=== PATIENT | male | born 1940 | race Caucasian/White ===

== ENCOUNTER 2025-02-10 03:20 | Emergency (ER) | payer MEDICARE, BC ==
[2025-02-10 03:43] LABS: BASOPHILS ABSOLUTE AUTO 0.04 K/uL (0.00-0.20); BASOPHILS PERCENT AUTO 0.6 % (0.0-2.0); EOSINOPHILS ABSOLUTE AUTO 0.33 K/uL (0.00-0.50); EOSINOPHILS PERCENT AUTO 5.1 % (0.0-5.0); IMMATURE GRAN ABSOLUTE AUTO 0.01 10^3/uL (0.00-0.04); IMMATURE GRAN PERCENT AUTO 0.2 % (0.0-0.4); LYMPHOCYTES ABSOLUTE AUTO 1.15 K/uL (0.50-3.50); LYMPHOCYTES PERCENT AUTO 17.7 % (10.0-50.0); MONOCYTES ABSOLUTE AUTO 1.10 K/uL (0.00-1.00); MONOCYTES PERCENT AUTO 16.9 % (2.0-14.0); NEUTROPHILS ABSOLUTE AUTO 3.87 K/uL (1.40-7.00); NEUTROPHILS PERCENT AUTO 59.5 % (45.0-80.0); PLATELET COUNT,PLT 215 K/uL (150-350); RED BLOOD CELL COUNT 5.21 M/uL (4.33-5.41); RED CELL DISTRIBUTION WIDTH 12.8 % (11.2-14.1); WHITE BLOOD CELL COUNT,WBC 6.5 K/uL (4.0-10.2)
[2025-02-10 04:07] LABS: ALANINE AMINOTRANSFERASE,ALT 21 U/L (12-78); ASPARTATE AMNIOTRANSFERASE,AST 31 U/L (15-37); BILIRUBIN TOTAL 0.6 mg/dL (0.2-1.0); BLOOD UREA NITROGEN,BUN 23 mg/dL (7-18); CARBON DIOXIDE,CO2 30.3 mmol/L (21.0-32.0); CHLORIDE,CL 105 mmol/L (98-107); CREATININE 1.14 mg/dL (0.51-1.17); GLUCOSE RANDOM 104 mg/dL (70-99); POTASSIUM,K 3.7 mmol/L (3.5-5.1); PROTEIN TOTAL,TP 6.9 g/dL (6.4-8.2); SODIUM,NA 142 mmol/L (136-145)
[2025-02-10 04:08] LABS: ESTIMATED GFR 64 mL/min (>=60)
[2025-02-10 05:00] LABS: INR 1.0 (0.9-1.1)
[2025-02-10] MEDS ORDERED: Iopamidol 755 Mg/ML 100 ML Bottle ONE (05:09)
== END 2025-02-10 07:10 ==
LOC: MERGE 03:20 → LL.ED 03:20
DX: I63.411 Cerebral infarction due to embolism of right middle cerebral artery (principal); I25.10 Atherosclerotic heart disease of native coronary artery without angina pectoris; I25.2 Old myocardial infarction; I10 Essential (primary) hypertension
CPT/HCPCS: 36415; 70450; 70496; 70498; 80053; 82140; 83605; 83735; 84484; 85025; 85610; 85730; 99285; Q9967